=== PATIENT | male | born 1960 | race Caucasian/White ===

== ENCOUNTER 2025-01-28 09:44 | Emergency (ER) | payer SELFPAY ==
[2025-01-28] MEDS ORDERED: diphenhydrAMINE 25 MG CAP ONE (12:24)
== END 2025-01-28 12:20 | disposition home or self-care (01) ==
LOC: ERS 09:44
DX: K02.9 Dental caries, unspecified (principal); I11.0 Hypertensive heart disease with heart failure; I50.9 Heart failure, unspecified; E11.9 Type 2 diabetes mellitus without complications; K21.9 Gastro-esophageal reflux disease without esophagitis; E78.00 Pure hypercholesterolemia, unspecified; Z79.899 Other long term (current) drug therapy; Z79.84 Long term (current) use of oral hypoglycemic drugs
CPT/HCPCS: 99282